=== PATIENT | male | born 1950 | race Caucasian/White ===

== ENCOUNTER → 2016-04-03 | Outpatient (CLI) | payer OTHER ==
[~2016-04-03] MED LIST: IOPAMIDOL (ISOVUE 370) 100 ML BTL IV ONE
[2016-04-03 16:07] LABS: CREATININE 0.9 mg/dL (0.7-1.3); GLOMERULAR FILTRATION RATE > 60
--- NOTE | 2016-04-03 17:23 | CT ---
CT Chest Angiogram, With Contrast Enhancement and Multiplanar Reconstructions, at 1623 hours History: Recurrent atrial fibrillation. Evaluate for pulmonary vein stenoses. Asthma. Technique: 1.25-mm axial multidetector helical CT imaging was performed through the chest while 85 m L Isovue-370 were injected intravenously, without complication. The images were then transferred to an independent workstation where multiplanar, volume rendering, and three-dimensional reconstructions were performed by the interpreting physician and reviewed at multiple windows. Dose reduction techn iques were utilized. Findings: CT Angiogram for left atrial anatomy: The pulmonary veins are evaluated. There are 2 main pulmonary v eins on the right as well as 2 on the left. Left atrial measurement is 4.1 x 7.2 x 5.5 cm. Pulmonary veins draining right upper lobe: 12 x 14 mm diameter, with branching occurring 7 mm from t he origin. The right pulmonary vein draining right lower lun x 17 mm. Bifurcation occurs 20 mm from the o rigin. Pulmonary vein draining left upper lun x 14 mm, with branching occurring about 15 mm from the o rigin. Pulmonary vein draining left lower lung, 10 x 12 mm in diameter, with branching occurring 20 mm from the origin. There is normal enhancement of the pulmonary arterial vasculature, without evidence of intraluminal t hrombus. The thoracic aorta has a normal contour, without aneurysm or dissection. CT Chest: There are no pulmonary nodules. Pleuroparenchymal scarring in the right middle lobe and l ingula. Minimal ground-glass atelectasis bilateral lower lobes, without definite acute pneumonia. N o suspicious pulmonary nodules. There is no significant hilar or mediastinal lymphadenopathy. Coron radha artery calcifications. Impressions 1. Normal pulmonary vein anatomy. 2. Pleuroparenchymal scarring in the right middle lobe, lingula, and dependent atelectasis bilateral lower lobes. 3. Coronary artery atherosclerosis.
== END ==
LOC: FIMAGING 15:25
PROVIDERS: ATTEND Internal Medicine Cardiovascular Disease
DX: I48.91 Unspecified atrial fibrillation (principal)
CPT/HCPCS: 75572; Q9967

== ENCOUNTER 2016-04-28 11:07 | Observation (INO) | payer OTHER ==
[2016-04-28] MEDS ORDERED: MIDAZOLAM 2 MG/2 ML VIAL IVP ONE ×2 (11:13)
[2016-04-28] MEDS ORDERED: fentaNYL 100 MCG/2 ML INJ IVP ONE (11:13)
[2016-04-28] MEDS ORDERED: NS 1,000 ML IV ONE ×2 (11:13)
[2016-04-28] MEDS ORDERED: BENZOCAINE UNIT DOSE SPRAY HURRICAINE MM ONE (11:13)
--- NOTE | 2016-04-28 11:32 | CPEKG ---
Heart Rate: 75 RR Interval: 800 QRSD Interval: 80 QT Interval: 364 QTC Interval: 407 QRS [place]: 58 T Wave [place]: 7 EKG Severity - ABNORMAL ECG - EKG Impression: ATRIAL FIBRILLATION, V-RATE 53-90 Electronically Signed By: Tyrell Quezada 28-Apr-2016 12:04:07
[2016-04-28 12:14] LABS: % IMMATURE GRANULYOCYTES 0.3 % (0.0-1.1); ABSOLUTE IMMATURE GRANULOCYTES 0.02 10^3/uL (0.00-0.10); ADD DIFF? NO; ADD MORPH? NO; ADD SCAN? NO; ATYPICAL LYMPHOCYTE FLAG 0 (0-99); FRAGMENT RBC FLAG 0 (0-99); HEMATOCRIT 48.1 % (40.0-51.0); HEMOGLOBIN 16.4 g/dL (13.7-17.5); LEFT SHIFT FLG 0 (0-99); LIPEMIA HEMOLYSIS FLAG 90 (0-99); MEAN CELL HEMOGLOBIN 29.3 pg (27.9-34.1); MEAN CELL HEMOGLOBIN CONCENTR. 34.1 g/dL (32.4-36.7); PLATELET CLUMPS FLAG 10 (0-99); PLATELET COUNT 381 10^3/uL (150-400); RED BLOOD CELL COUNT 5.59 10^6/uL (4.40-6.38); RED CELL DISTRIBUTION WIDTH 15.1 % (11.5-15.2)
[2016-04-28 12:20] LABS: INR 1.04 (0.83-1.16); PROTIME(PATIENT) 13.5 SEC (12.0-15.0)
[2016-04-28 12:21] LABS: APTT 27.9 SEC (23.0-38.0)
[2016-04-28 12:40] LABS: ANION GAP 12 mEq/L (8-16); CALCIUM 9.9 mg/dL (8.5-10.4); CARBON DIOXIDE 24 mEq/l (22-31); CHLORIDE 104 mEq/L (97-110); CREATININE 0.9 mg/dL (0.7-1.3); GLOMERULAR FILTRATION RATE > 60; GLUCOSE 109 mg/dL (70-100); SODIUM 140 mEq/L (134-144)
[2016-04-28] MEDS ORDERED: BUPIVACAINE 0.5% 30 ML SDV ONE (12:51)
[2016-04-28] MEDS ORDERED: HEPARIN 10,000 UNIT/10 ML MDV ONE ×2 (12:51→13:11)
[2016-04-28] MEDS ORDERED: LIDOCAINE 1% 30 ML SDV ONE (12:51)
[2016-04-28] MEDS ORDERED: IOPAMIDOL (ISOVUE 370) 100 ML BTL IV ONE ×2 (12:53→12:54)
[2016-04-28] MEDS ORDERED: ROCURONIUM 50 MG/5 ML VIAL ONE (12:55)
[2016-04-28] MEDS ORDERED: fentaNYL 100 MCG/2 ML INJ ONE (12:55)
[2016-04-28] MEDS ORDERED: PROPOFOL/EMULSION 500 MG/50 ML BOTTLE IV ONE ×2 (12:55→14:38)
[2016-04-28] MEDS ORDERED: HEPARIN/DEXTROSE 25,000 UNIT/500 ML BAG IV ONE (13:11)
[2016-04-28] MEDS ORDERED: SUGAMMADEX SODIUM 200 MG/2 ML VIAL IVP ONE (14:45)
[2016-04-28] MEDS ORDERED: PROTAMINE SULFATE 50 MG/5 ML VIAL IVP ONE (15:00)
[2016-04-28] MEDS ORDERED: ALBUTEROL 60 PUFFS/8 GM MDI IH PRN (15:27)
[2016-04-28] MEDS ORDERED: ACETAMINOPHEN 325 MG TAB PO PRN (15:28)
[2016-04-28] MEDS ORDERED: OXYCODONE/APAP 5/325 TAB PO PRN (15:28)
[2016-04-28] MEDS ORDERED: ONDANSETRON 4 MG/2 ML VIAL IVP PRN (15:28)
--- NOTE | 2016-04-28 15:41 | EPPROC ---
Electrophysiology Procedure Note: ELECTROPHYSIOLOGIC STUDY AND BALLOON-CATHETER MEDIATED CRYOABLATION FOR PAROXYSMAL ATRIAL FIBRILLATION Procedures performed: 94032-45 EP evaluation with RA/RV/LA pace/record, with arrhythmia induction 61748-27 EP evaluation with RA/RV pace record, insert/reposition catheter, with arrhythmia induction 19173 Atrial fibrillation ablation Intracardiac echocardiogram Fluoroscopy INDICATION: Paroxysmal atrial fibrillation PROCEDURE: The patient arrived in the Electrophysiology Laboratory in the fasting state. The right groin, left groin and right infraclavicular area were prepped and draped in the usual sterile fashion. Anesthesiologist administered general anesthesia Dr. Vika Chappell . All catheters were placed percutaneously using the Seldinger technique and advanced into position under fluoroscopic guidance. One #7 [place]ut deflectable octapolar electrode catheter was placed in the His-bundle position via the left femoral vein (2mm spacing, IVC electrode for unipolar recordings). This catheter was placed in the coronary sinus after transseptal puncture and later placed in the SVC-R subclavian vein junction to pace the right phrenic nerve during right pulmonary vein ablation. One #8 [place]ut AcuNaV ultrasound catheter was placed in the left femoral vein and advanced into the right atrium. One #4 [place]ut sheath was inserted into the left femoral artery via percutaneous technique and used for continuous arterial blood pressure monitoring and intermittent ACT determination. Programmed stimulation was performed from the right atrium, left atrium (CS) and right ventricle. There was no evidence of AV accessory pathway. Intracardiac echo evaluation of the left atrium and pulmonary veins was performed. Baseline ACT was drawn and heparin bolus was administered and heparin drip was started prior to transseptal puncture. ACT was checked every 15 minutes and maintained in the range of 350-400 seconds. One 14Fr short sheath was placed in the right femoral vein. One 8Fr SL1 sheath was advanced into the right atrium via the 14Fr short sheath. Torflex sheath was placed in LA via patent foramen ovale. The mean left atrial pressure was 12 mmHg. Pulmonary vein angiogram was done using SL1 sheath. CT angiography of pulmonary veins was done previously. There were distinct LSPV, LIPV, RSPV and RIPV. There was 30% ostial stenosis of LIPV (preexisting). The SL1 sheath was exchanged for a PixelOpticstronic Flexcath sheath using an Amplatz stiff guide wire. A 28 mm Cryoballoon catheter with a 20 mm Achieve catheter was placed via the sheath into the left atrium. Intracardiac ultrasound and PV angiograms were used to assist in placing the mapping catheter at the antrum of the pulmonary veins. All pulmonary veins were isolated successfully using cryoballoon ablation using freeze/thaw/freeze cycles at 2-3-minute intervals, with good aryk-re-uglakg of isolation. Coumadin ridge/Ligament of [place] region was ablated. Pre and post pulmonary vein recordings were measured on the spiral Achieve catheter to ensure complete pulmonary vein isolation. During the right-sided ablation, phrenic nerve pacing was performed to assess the phrenic nerve strength ( manually and with ICE visualization of liver movement during phrenic capture) and the phrenic nerve was intact throughout the right-sided ablation and at the end of the procedure. An esophageal temperature probe (12 electrode, Circa) was placed by the anesthesiologist at the beginning of the procedure. Esophageal temperature was monitored continuously and cryoablation was interrupted if esophageal temperature was <15 C. Cryoapplications 6 total cryoablation time 900s. ICE imaging post ablation was consistent with pre ablation imaging with no changes noted, moreover there was no left atrial/left ventricular thrombus and no pericardial effusion. The catheters were withdrawn. Protamine was given. The sheaths were removed and manual pressure was used for hemostasis. The patient was recovered from anesthesia. There were no complications. The patient was arousable and moving all four extremities at the end of the procedure. CONCLUSIONS: 1. Paroxysmal atrial fibrillation. 2. Successful pulmonary vein isolation procedure (left and right pulmonary vein antrum) using cryoballoon ablation. 3. No apparent complications. Patient Problems: Problems Problem Status Onset Atrial fibrillation and flutter Acute Ventral hernia Acute
[2016-04-28] MEDS ORDERED: ATROPINE SULFATE 1 MG/10 ML SYR ONE (15:49)
--- NOTE | 2016-04-28 16:06 | CPEKG ---
Heart Rate: 71 RR Interval: 845 P-R Interval: 160 QRSD Interval: 84 QT Interval: 396 QTC Interval: 431 P [place]: 45 QRS [place]: 62 T Wave [place]: 27 EKG Severity - NORMAL ECG - EKG Impression: SINUS RHYTHM EKG Impression: SINUS RHYTHM HAS REPLACED ATRIAL FIBRILLATION Electronically Signed By: Rachid Lacy 29-Apr-2016 08:35:52
[2016-04-28 16:33] LABS: ANION GAP 8 mEq/L (8-16); CALCIUM 9.2 mg/dL (8.5-10.4); CARBON DIOXIDE 33 mEq/l (22-31); CHLORIDE 97 mEq/L (97-110); CREATININE 0.6 mg/dL (0.7-1.3); GLOMERULAR FILTRATION RATE > 60; GLUCOSE 243 mg/dL (70-100); POTASSIUM 4.9 mEq/L (3.5-5.2); SODIUM 138 mEq/L (134-144)
[2016-04-28] MEDS ORDERED: CEPACOL LOZENGE PO PRN (16:42)
[2016-04-28] MEDS ORDERED: NON-FORMULARY NEW DRUG (Ranitidine Hcl [Zantac] 300 MG) PO SCH (21:00)
[2016-04-28] MEDS ORDERED: FAMOTIDINE 20 MG TAB PO SCH (21:00)
[2016-04-28] MEDS ORDERED: ENOXAPARIN 80 MG/0.8 ML SYR SC SCH (21:00)
[2016-04-28] MEDS ORDERED: CETIRIZINE 10 MG TAB PO SCH (21:00)
[2016-04-28] MEDS ORDERED: MONTELUKAST SODIUM 10 MG TAB PO SCH (21:00)
[2016-04-28] MEDS ORDERED: NON-FORMULARY NEW DRUG (Loratadine [Loratadine] 10 MG) PO SCH (21:00)
[2016-04-28] MEDS: METOPROLOL TARTRATE 25 MG TAB PO SCH (21:01)
[2016-04-28 21:11] VITALS: TEMP 98.8
[2016-04-28] MEDS: BUDESONIDE/FORMOTEROL 160/4.5 60 PUFFS/MDI IH SCH (22:31)
[2016-04-28] MEDS: ENOXAPARIN 100 MG/ML SYR SC SCH (22:48)
[2016-04-29 05:28] LABS: % IMMATURE GRANULYOCYTES 0.2 % (0.0-1.1); ABSOLUTE IMMATURE GRANULOCYTES 0.02 10^3/uL (0.00-0.10); ADD DIFF? NO; ADD MORPH? NO; ADD SCAN? NO; ATYPICAL LYMPHOCYTE FLAG 10 (0-99); FRAGMENT RBC FLAG 0 (0-99); HEMATOCRIT 39.6 % (40.0-51.0); LEFT SHIFT FLG 0 (0-99); LIPEMIA HEMOLYSIS FLAG 80 (0-99); MEAN CELL HEMOGLOBIN 28.8 pg (27.9-34.1); MEAN CELL HEMOGLOBIN CONCENTR. 32.8 g/dL (32.4-36.7); MEAN CELL VOLUME 87.6 fL (81.5-99.8); MEAN PLATELET VOLUME 9.2 fL (8.7-11.7); PLATELET CLUMPS FLAG 10 (0-99); PLATELET COUNT 314 10^3/uL (150-400); RED BLOOD CELL COUNT 4.52 10^6/uL (4.40-6.38); RED CELL DISTRIBUTION WIDTH 15.5 % (11.5-15.2)
[2016-04-29 05:32] LABS: INR 1.15 (0.83-1.16); PROTIME(PATIENT) 14.6 SEC (12.0-15.0)
[2016-04-29 05:37] LABS: ANION GAP 5 mEq/L (8-16); CALCIUM 8.3 mg/dL (8.5-10.4); CARBON DIOXIDE 23 mEq/l (22-31); CHLORIDE 108 mEq/L (97-110); CREATININE 0.8 mg/dL (0.7-1.3); GLOMERULAR FILTRATION RATE > 60; GLUCOSE 101 mg/dL (70-100); POTASSIUM 4.1 mEq/L (3.5-5.2); SODIUM 136 mEq/L (134-144)
[2016-04-29 05:46] LABS: CK-MB INTERPRETATION POSITIVE (NEGATIVE)
[2016-04-29] MEDS: ENOXAPARIN 100 MG/ML SYR SC SCH (08:03)
[2016-04-29] MEDS: METOPROLOL TARTRATE 25 MG TAB PO SCH (08:04)
--- NOTE | 2016-04-29 08:42 | CPEKG ---
Heart Rate: 64 RR Interval: 938 P-R Interval: 176 QRSD Interval: 82 QT Interval: 388 QTC Interval: 401 P [place]: 36 QRS [place]: 58 T Wave [place]: 17 EKG Severity - NORMAL ECG - EKG Impression: SINUS RHYTHM Electronically Signed By: Rachid Lacy 29-Apr-2016 08:44:29
[2016-04-29] MEDS ORDERED: NON-FORMULARY NEW DRUG (Omeprazole [Prilosec 20 Mg] 40 MG) PO SCH (09:00)
[2016-04-29] MEDS ORDERED: PANTOPRAZOLE SODIUM 40 MG TAB PO SCH (09:00)
[2016-04-29 10:58] VITALS: BP 118/87; PULSE 60; RESP 17; O2SAT 94
[2016-04-29] MEDS: BUDESONIDE/FORMOTEROL 160/4.5 60 PUFFS/MDI IH SCH (12:33)
--- NOTE | 2016-04-29 14:34 | GDS ---
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 Tyrell Quezada ADMISSION DIAGNOSES: 1. Paroxysmal atrial fibrillation. 2. Patent foramen ovale with erfzp-ta-qhph shunting at atrial level. 3. Asthma. DISCHARGE DIAGNOSIS: 1. Paroxysmal atrial fibrillation. 2. Status post electrophysiology with successful pulmonary vein isolation using cryoballoon ablatio n technique. 3. Patent foramen ovale with [id number]-xl-rudj shunting. 4. Asthma. PROCEDURES DONE DURING HOSPITALIZATION: 1. Electrocardiogram. 2. Transesophageal echocardiogram. 3. Electrophysiology study. 4. Successful pulmonary vein isolation ablation using cryoballoon technique. 5. Echocardiogram. BRIEF HISTORY: Please see H and P. The patient is a 66-year-old male patient of Dr. Richard Montoya who recently had a Zoll monitor placed showing a 25% atrial fibrillation burden with ventricular rates to 180 beats per minute. Patient reporting significant fatigue and weakness when going into AFib, a nd he was referred to Dr. Quezada by Dr. Montoya who evaluated him. They did discuss potential treatments, including antiarrhythmic therapy and intervention mechanically with ablation. Patient decided to u ndergo ablation. HOSPITAL COURSE: Patient was admitted to the [facility], prepped for procedure, and taken to electrophysio logy lab. There under anesthesia, Dr. Montoya performed a ANNITA; please see note. At that point, Dr. Darien perez proceeded with procedure, started with electrophysiology study, and performed a successful cryobal loon ablation of the pulmonary vein for his atrial fibrillation. No apparent complications. Fan ashley was transferred to the intensive care unit for overnight observation. There he has remained in si nus rhythm with occasional premature ventricular contraction. He has had no bleeding issues. He love s been up and walking the unit without any reports of chest pain or shortness of breath. Denies of any lightheadedness, near-syncope, or syncopal events. PHYSICAL EXAMINATION: Done today. GENERAL APPEARANCE: Medium built, well-groomed, male. He is alert and orientated to person, place, time, and situation. Appears to be under no acute di stress. CURRENT VITAL SIGNS: Blood pressure 118/87, saturation 94% on room air, respirations 17, h eart rate 60 beats per minute, sinus rhythm on the monitor. HEENT: Head is normocephalic. Lips an d tongue are pink and moist with no signs of cyanosis. Conjunctivae pink. NECK: Trachea is midlin e, +2 carotid pulses bilateral. No auscultated bruits, no jugular vein distention. RESPIRATORY: L ungs clear to auscultation. No rhonchi, rales or wheezes. No accessory muscle use, no intercostal muscle retraction. CARDIAC: Regular rate, regular rhythm, S1, S2. No S3, S4 noted. 1 to 2 over 6 systolic murmur noted along the sternal border. ABDOMEN: Soft, nontender, bowel sounds x4 quadran ts. No organomegaly. No palpable masses. SKIN: [place], warm, dry. No cyanosis, peripheral edema. GROIN SITES: Catheter insertion site, bilateral: No redness, swelling, drainage, ecchymosis, or h ematoma noted at either site. No auscultated bruits. VASCULAR: +2 carotids bilateral, +2 radials bilateral, +1 dorsal pedal and posterior tibial pulses bilateral. NEURO: Cranial nerves 2-12 gross ly intact. LABORATORY STUDIES: From today show white blood cell count of 8.47, hemoglobin of 13.0, hematocrit of 39.6, platelet count 314. INR of 1.15. Sodium 136, potassium 4.0, chloride 108, CO2 of 23, BUN 19, creatinine 0.8, glucose 101, calcium 8.3. CK of 440, CK-MB fraction 32.10, CK-MB percentage 7.3 . Troponin 12.5, note expected elevation of cardiac enzymes status post ablation. DIAGNOSTIC STUDIES: Please see ANNITA report, electrophysiology study as above. A.m. electrocardiogra m shows sinus rhythm, with nonspecific T-waves in inferior leads. Echocardiogram preliminary report that was done this morning showing normal LV systolic function with normal ejection fraction, no wa ll motion abnormality, no pericardial effusion. DISCHARGE DISPOSITION: Patient will be discharged home in stable condition. He is under activity r estrictions, not lifting more than 10 pounds for the next week and no strenuous activity for the nex t 2 weeks. DISCHARGE MEDICATIONS: Please see discharge medication reconciliation sheet. Note patient has been restarted on and will continue taking his current metoprolol tartrate. He will resume and start ta michaela his Xarelto tonight, and he will continue taking his Prilosec and Zantac as ordered. No other changes to home medications. DISCHARGE INSTRUCTIONS: Post electrophysiology discharge instructions went over with the patient, i ncluding monitoring for signs of infection, bleeding precaution, activity restriction, and medicatio n compliance. Patient verbalized understanding. At the time of discharge, patient and have no further questions. They have a followup appointment set with Dr. Quezada in 2 weeks. The patient has also been asked to call his primary meat lugger, Dr. Montoya, to set up an office appointment with him to be seen in the next 2-3 weeks. At the time of discharge, they have been told that if any questi ons or concerns post discharge, they are to call our office or seek medical attention immediately. TOTAL TIME SPENT ON DISCHARGE: Greater than 30 minutes. /[id number]/MODL
--- NOTE | 2016-05-04 12:16 | ECHO ---
[id number] + + [address] : : [place] [address] : : [phone] + Adult Echocardiographic Report + ---+ :Name: JESSICA CHRISTIAN BStudy Date: 04/29/2016 07:30 AM : : Hospital Admission Number: [id number] Location: 247: :: 1950 Gender: Male Height: 70 in : :Age: 66 yrs Race: WH Weight: 197 lb : :Reason For Study: AFIB F/U Post EP Study : : BSA: 2.1 meters2 : :History: AFIB : + ---+ MMode/2D Measurements \T\ Calculations IVSd: 1.2 cm RVDd: 3.1 cm FS: 37.9 % LVOT diam: 1.8 cm LVPWd: 0.67 cm LVIDd: 4.3 cm EDV(Teich): LVOT area: LVIDs: 2.6 cm 81.4 ml 2.6 cm2 ESV(Teich): 25.7 ml EF(Teich): 68.4 % LVLd ap4: 7.8 cm SV(MOD-sp4): EDV(MOD-sp4): 52.0 ml 85.0 ml LVLs ap4: 6.8 cm ESV(MOD-sp4): 33.0 ml EF(MOD-sp4): 61.2 % Normal Measurement Values: + + :LVIDd (3.5-5.7cm) IVSd (0.6-1.1cm) LVPWd (0.6-1.1cm) Aortic Root (2.0-3.7cm)Left Atrium (1.5-4.0cm): :LV Vol(d) (76-115ml) LV Vol(s) (29-48ml) Ejec Fraction (50-65%)PV Chad (0.6- 1.2m/s) TV Chad (0.4-1.0m/s) : :MV E Chad (0.8-1.0m/s)MV A Chad (0.3-1.0m/s)LVOT Chad (0.7-1.2m/s) Asc Ao Chad ( 0.9-1.8m/s) : + + Doppler Measurements \T\ Calculations MV E max chad: MV V2 mean: Ao V2 max: LV V1 max: 79.5 cm/sec 45.5 cm/sec 129.1 cm/sec 112.0 cm/sec MV A max chad: MV mean PG: Ao max P.7 mmHgLV V1 max P.6 cm/sec 0.96 mmHg Ao mean P.0 mmHg MV E/A: 2.4 MV V2 VTI: 23.1 cm3.6 mmHg LV V1 mean PG: MV dec time: MVA(VTI): 2.3 cm2 Ao V2 mean: 2.4 mmHg 0.21 sec 86.1 cm/sec LV V1 mean: Ao V2 VTI: 26.4 cm 68.9 cm/sec MARTIN(I,D): 2.0 cm2 LV V1 VTI: 20.4 cm MARTIN(V,D): 2.2 cm2 SV(LVOT): 52.3 ml PA V2 max: TR max chad: 106.3 cm/sec 231.7 cm/sec PA max PG: TR max P.5 mmHg 21.5 mmHg RAP systole: 10.0 mmHg RVSP(TR): 31.5 mmHg Left Ventricle The left ventricle is normal in size and function. There is normal left ventricular wall thickness. Ejection Fraction = 60%. There is Doppler evidence for diastolic dysfunction. No regional wall motion abnormalities noted. Right Ventricle The right ventricle is normal in size and function. Atria The left atrial size is normal. Right atrial size is normal. Known interatrial shunt. Mitral Valve The mitral valve is normal in structure and function. There is no mitral valve stenosis. There is trace to mild mitral regurgitation. Tricuspid Valve The tricuspid valve is normal in structure and function. There is no tricuspid stenosis. There is trace to mild tricuspid regurgitation. Right ventricular systolic pressure is normal. Aortic Valve The aortic valve is normal in structure and function. There is no aortic stenosis. There is no aortic insufficiency. Pulmonic Valve The pulmonic valve is normal in structure and function. There is no pulmonic valvular stenosis. There is no pulmonic valvular regurgitation. Great Vessels The aortic root is normal size. Pericardium/Pleural There is no pericardial effusion. Conclusion A complete two-dimensional transthoracic echocardiogram was performed (2D, M-mode, Doppler and color flow Doppler). The left ventricle is normal in size and function. Ejection Fraction = 60%. There is Doppler evidence for diastolic dysfunction. Known interatrial shunt. There is trace to mild mitral regurgitation. There is trace to mild tricuspid regurgitation. Right ventricular systolic pressure is normal. The aortic valve is normal in structure and function. There is no pericardial effusion. Final Reading Physician: Agustin Nichols signed on 05/04/2016 12:14 PM Ordering Physician: Tyrell Quezada Performed By: Priya Anna
== END 2016-04-29 12:34 | disposition home or self-care (01) ==
LOC: FCATH 11:07 → F2N 15:30 → INTOOBSV 15:30
PROVIDERS: ADMIT Internal Medicine Cardiovascular Disease; ATTEND Internal Medicine Cardiovascular Disease
PROC: 025S3ZZ Destruction of Right Pulmonary Vein, Percutaneous Approach (ICD-10-PCS; principal; 2016-04-28)
PROC: 025T3ZZ Destruction of Left Pulmonary Vein, Percutaneous Approach (ICD-10-PCS; 2016-04-28)
PROC: 4A0234Z Measurement of Cardiac Electrical Activity, Percutaneous Approach (ICD-10-PCS; 2016-04-28)
PROC: 02K83ZZ Map Conduction Mechanism, Percutaneous Approach (ICD-10-PCS; 2016-04-28)
PROC: B246ZZZ Ultrasonography of Right and Left Heart (ICD-10-PCS; 2016-04-28)
DX: I48.0 Paroxysmal atrial fibrillation (principal); Q21.1 Atrial septal defect; J45.909 Unspecified asthma, uncomplicated; K21.9 Gastro-esophageal reflux disease without esophagitis; E66.9 Obesity, unspecified; Z68.28 Body mass index [BMI] 28.0-28.9, adult; Z79.01 Long term (current) use of anticoagulants
CPT/HCPCS: 93005; 93312; 93609; 93656; 93662; C1730; C1731; C1732; C1733; C1759; C1766; C1893; J1644; J1650; J2250; J2704; J2720; J3010; Q9967; J0461

== ENCOUNTER → 2016-05-13 | Outpatient (CLI) | payer OTHER | LOC: BHFA 15:15 | PROVIDERS: ATTEND Internal Medicine Cardiovascular Disease | DX: I48.91 Unspecified atrial fibrillation (principal) ==

== ENCOUNTER → 2017-05-17 | Outpatient (CLI) | payer OTHER | LOC: BMCIMAGING 09:35 | PROVIDERS: ATTEND Emergency Medicine | DX: J98.4 Other disorders of lung (principal) ==

== ENCOUNTER → 2017-12-08 | Outpatient (CLI) | payer OTHER | LOC: BMCIMAGING 10:40 | PROVIDERS: ATTEND Family Medicine | DX: M25.511 Pain in right shoulder (principal) ==